=== PATIENT | female | born 1970 | race Caucasian/White ===

== ENCOUNTER → 2016-11-23 | Outpatient (CLI) | payer BC | LOC: MAMO 11-15 15:40 | DX: Z12.31 Encounter for screening mammogram for malignant neoplasm of breast (principal) | CPT/HCPCS: G0202 ==

== ENCOUNTER 2020-08-18 06:56 | Day surgery (SDC) | payer BC, OTHER ==
[~2020-08-18] VITALS: Ht 152.4 cm; Wt 56.2 kg
[2020-08-18] MEDS ORDERED: INCASSIA0.35 MG PO (08:10)
[2020-08-18 08:37] LABS: HEMOGLOBIN 13.6 gm/dl (12.3-15.3); RED BLOOD COUNT 4.59 M/UL (4.00-5.10); WHITE BLOOD COUNT 6.9 K/UL (4.5-11.0)
[2020-08-19 06:53] LABS: HEMOGLOBIN 10.9 gm/dl (12.3-15.3)
[2020-08-19] MEDS ORDERED: ZOFRAN4 MG PO (10:26)
[2020-08-19] MEDS ORDERED: IBUPROFEN800 MG PO (10:26)
[2020-08-19] MEDS ORDERED: HYDROCODON-ACE1 EAC4 PO (10:28)
[2020-08-19] MEDS ORDERED: DOCUSATE SODIU250 MG PO (10:28)
== END 2020-08-19 11:06 | disposition home or self-care (01) ==
LOC: OR 06:56 → M/S 15:05 → OR 08-19 11:06
PROVIDERS: Obstetrics & Gynecology
DX: D25.2 Subserosal leiomyoma of uterus (principal); N81.4 Uterovaginal prolapse, unspecified
CPT/HCPCS: 81001; 84703; 85014; 85018; 85025; 93005; C1769; C1771; J0690; J1100; J1170; J1885; J2001; J2250; J2405; J2550; J2704; J2710; J3010; J7050; J7120

== ENCOUNTER 2021-04-26 18:43 | Emergency (ER) | payer BC ==
[~2021-04-26 18:43] MED LIST: DOCUSATE SODIU250 MG PO; HYDROCODON-ACE1 EAC4 PO; IBUPROFEN800 MG PO; INCASSIA0.35 MG PO; ZOFRAN4 MG PO
== END 2021-04-26 20:19 | disposition home or self-care (01) ==
LOC: ER1 18:43
DX: U07.1 COVID-19 (principal); Z90.710 Acquired absence of both cervix and uterus
CPT/HCPCS: 99283